=== PATIENT | male | born 1960 | race Caucasian/White ===

== ENCOUNTER 2016-04-22 13:25 | Emergency (ER) | payer OTHER ==
[~2016-04-22] VITALS: Ht 182.9 cm; Wt 118.0 kg
[2016-04-22] MEDS ORDERED: PAROXETINE HCL20 MG PO (14:02)
[2016-04-22] MEDS ORDERED: ROSUVASTATIN CA20 MG PO (14:03)
[2016-04-22] MEDS ORDERED: PERCOCET 5/31 TABLET PO (14:36)
[2016-04-22 15:18] VITALS: BP 142/84
== END 2016-04-22 15:18 | disposition home or self-care (01) ==
LOC: EME 13:25
PROC: 2W3QX1Z Immobilization of Right Lower Leg using Splint (ICD-10-PCS; principal; 2016-04-22)
DX: S92.324A Nondisplaced fracture of second metatarsal bone, right foot, initial encounter for closed fracture (principal); W11.XXXA Fall on and from ladder, initial encounter; E78.5 Hyperlipidemia, unspecified
CPT/HCPCS: 73610; 73630; 99281; 99284